=== PATIENT | female | born 1995 | race Caucasian/White ===

== ENCOUNTER → 2020-02-16 14:41 | Outpatient (CLI) | payer OTHER, MEDICAID, SELFPAY ==
[2020-02-16 15:39] LABS: HCG Quantitative /Beta subunit < 2.4 mIU/mL
== END ==
PROVIDERS: Family Provider Specialist; Referring Provider Specialist; Visit Provider Specialist
DX: Z34.90 Encounter for supervision of normal pregnancy, unspecified, unspecified trimester (principal)
CPT/HCPCS: 36415; 84702

== ENCOUNTER → 2021-11-07 14:34 | Outpatient (CLI) | payer OTHER, MEDICAID, SELFPAY ==
[2021-11-07 19:22] LABS: Appearance Urine UA CLEAR; Bilirubin Urine UA NEGATIVE (NEGATIVE); Color Urine UA YELLOW; Glucose Urine UA NEGATIVE (Negative); Ketones Urine UA NEGATIVE (NEGATIVE); Leukocyte Esterase Urine UA NEGATIVE (NEGATIVE); Nitrite Urine UA NEGATIVE (Negative); Occult Blood Urine UA 1+ (Negative); Protein Urine UA NEGATIVE (Negative); Urobilinogen Urine UA 0.2 E.U./dL (0.2)
[2021-11-07 19:25] LABS: pH Urine UA 5.5 (4.5-8.0)
[2021-11-07 20:35] LABS: Bacteria Urine None Seen; RBC Urine 1-5/HPF (0-5/HPF); WBC Urine None Seen (0-5/HPF)
== END ==
PROVIDERS: Family Provider Specialist; PCP Physician Assistant Medical; Visit Provider Obstetrics & Gynecology
DX: Z34.81 Encounter for supervision of other normal pregnancy, first trimester (principal)
CPT/HCPCS: 81003; 81015; 87086

== ENCOUNTER → 2021-12-05 14:42 | Outpatient (CLI) | payer OTHER, MEDICAID, SELFPAY ==
[2021-12-05 17:13] LABS: Add Manual Diff / Slide Review NO; Basophils Absolute Auto 0 /uL (0-100); Basophils Percent Auto 0.2 % (0-2); Eosinophils Absolute Auto 100 /uL (0-450); Eosinophils Percent Auto 1.4 % (2-4); Hematocrit 37.2 % (36-46); Hemoglobin 13.2 g/dL (12.0-16.0); Lymphocytes Absolute Auto 2700 /uL (1100-4500); Lymphocytes Percent Auto 26.8 % (25-40); Mean Corpuscular HGB Conc 35.4 % (30-36); Mean Corpuscular Hemoglobin 30.2 PG (26-34); Mean Corpuscular Volume 85.1 fL (80-100); Monocytes Absolute Auto 700 /uL (0-900); Monocytes Percent Auto 6.9 % (3-14); Neutrophils Absolute Auto 6500 /uL (1500-7000); Neutrophils Percent Auto 64.7 % (50-75); Platelet Count 306 X10^3/uL (150-400); Red Blood Cell Count 4.37 X10^6/uL (4.0-5.2); Red Cell Distribution Width 13.1 % (11.6-14.8); White Blood Cell Count 10.1 X10^3/uL (4.5-11.0)
[2021-12-06 15:43] LABS: Hepatitis B Surface Antigen NEGATIVE s/c (NEGATIVE)
[2021-12-06 15:59] LABS: HIV 1 & 2 Ab/Ag 4th Gen Combo NEGATIVE (NEGATIVE); Hep C Virus Ab w/Reflex Quant NEGATIVE s/c (NEGATIVE)
[2021-12-07 05:02] LABS: RPR Screen Non Reactive (Non Reactive)
[2021-12-08 10:29] LABS: Varicella IgG Antibody 277 index (Immune >165)
== END ==
PROVIDERS: Family Provider Specialist; PCP Physician Assistant Medical; Referring Provider Obstetrics & Gynecology; Visit Provider Obstetrics & Gynecology
DX: R31.9 Hematuria, unspecified; Z34.81 Encounter for supervision of other normal pregnancy, first trimester
CPT/HCPCS: 36415; 80055; 86787; 86803; 86850; 86900; 86901; 87086; 87389

== ENCOUNTER → 2022-01-07 08:28 | Outpatient (CLI) | payer OTHER, MEDICAID, SELFPAY ==
[2022-01-09 19:49] LABS: AFP Value 81.1 ng/mL (.); Gest Age on Col Date 17.4 weeks (.); Insulin Dep Diabetes No (.); OSBR Risk 1IN 409 (.); Results Report (.); Test Results *Screen Negative* (.)
== END ==
PROVIDERS: Family Provider Specialist; PCP Physician Assistant Medical; Referring Provider Obstetrics & Gynecology; Visit Provider Obstetrics & Gynecology
DX: Z34.82 Encounter for supervision of other normal pregnancy, second trimester (principal); Z3A.17 17 weeks gestation of pregnancy
CPT/HCPCS: 36415; 82105

== ENCOUNTER → 2022-01-30 16:00 | Outpatient (CLI) | payer OTHER, MEDICAID, SELFPAY ==
--- NOTE | 2022-01-30 16:00 | DI.US.S_ITS ---
PROCEDURE: US OB >= 14 WEEKS FETUS INDICATIONS: 20 WEEK ANATOMY SCAN OUTSIDE/PRIOR DATING DATA: Last menstrual period (LMP): 09/07/2021. LMP-based estimated date of delivery (QUYEN): 06/14/2022. First dating scan (date and location): 01/30/2022. Estimated date of delivery (QUYEN) from first dating scan: 06/12/2022. TECHNIQUE: Real-time scanning was performed of the fetus, with image documentation and biometric measurements. COMPARISON: None. FINDINGS: General: A single living intrauterine gestation is present. Presentation: Vertex Placenta: Placental position is posterior , without previa. Amniotic fluid index: 12.0 cm, normal range is 5-24 cm. Single deepest vertical pocket is 4.1 cm. heart rate: 140 beats per minute. Maternal cervical canal: 4.1 cm long. Normal lower limit is 2.5 cm. biometrics: Biparietal diameter: 4.8 cm 20 weeks 4 days Head circumference: 18.5 cm 20 weeks 6 days Abdominal circumference: 16.4 cm 21 weeks 3 days Femur length: 3.5 cm 21 weeks 1 day Clinically estimated gestational age: 20 weeks 5 days Composite gestational age from present scan: 21 weeks 0 days Estimated weight and percentile: 411 g, 75th percentile Anatomic survey: Neuro: Ventricles are non-dilated at less than 10 mm. Cisterna magna is normal at 3-11 mm. Cerebellum is normal in size and morphology. Nuchal skin fold: Normal at less than 6 mm between 14-21 weeks gestational age. Face: Nose and lips, facial profile are normal. Spine: No evidence for spina bifida. Heart: 4-chambered heart is present, with normal ventricular outflow tracts. Diaphragm: Diaphragm is intact. Stomach: Left-sided stomach is present. Kidneys: No hydronephrosis. Normal is less than 5 mm in 2nd trimester, less than 7 mm in 3rd trimester. Cord: 3-vessel cord insertion is not well visualized. Bladder: Normal in size. Extremities: All 4 extremities identified. IMPRESSION: Single live intrauterine with ultrasound gestational age by ultrasound is 21 weeks 0 days. Placental cord insertion is difficult to visualize. Recommend attention to this region on follow-up to exclude abnormality. We strive to produce accurate, complete, and clear reports of imaging services. To assist us in improving patient care, this report was composed using standard report templates and voice recognition software. Therefore, it may contain abnormal punctuation, insertions and/or omissions. Occasional wrong-word or sound-alike substitutions may occur. Though we review the report and make efforts to correct it, we do recommend that the report be read carefully in proper context to recognize any text inaccuracies. Dictated by: Ana María Altamirano M.D. on 01/31/2022 at 13:07 Approved by: Ana María Altamirano M.D. on 01/31/2022 at 13:12
== END ==
PROVIDERS: Family Provider Specialist; PCP Physician Assistant Medical; Referring Provider Obstetrics & Gynecology; Visit Provider Obstetrics & Gynecology
DX: Z34.82 Encounter for supervision of other normal pregnancy, second trimester (principal); Z3A.21 21 weeks gestation of pregnancy
CPT/HCPCS: 76811

== ENCOUNTER → 2022-02-06 15:05 | Outpatient (CLI) | payer OTHER, MEDICAID, SELFPAY ==
[2022-02-06 18:39] LABS: Urine N gonorrhoeae NOT DETECTED
[2022-02-06 18:41] LABS: Urine Chlamydia NOT DETECTED
== END ==
PROVIDERS: Family Provider Specialist; PCP Physician Assistant Medical; Visit Provider Obstetrics & Gynecology
DX: Z34.82 Encounter for supervision of other normal pregnancy, second trimester (principal); Z3A.21 21 weeks gestation of pregnancy
CPT/HCPCS: 87491; 87591

== ENCOUNTER → 2022-02-27 13:13 | Outpatient (CLI) | payer OTHER, MEDICAID, SELFPAY ==
--- NOTE | 2022-02-27 13:14 | DI.US.S_ITS ---
PROCEDURE: US OB FOLLOW UP INDICATIONS: RE-EVALUATE PLACENTAL CORD INSERT OUTSIDE/PRIOR DATING DATA: Last menstrual period (LMP): 09/07/2021. LMP-based estimated date of delivery (QUYEN): 06/14/2022. First dating scan (date and location): 01/30/2022. Estimated date of delivery (QUYEN) from first dating scan: 06/12/2022. The calculations are made using the working QUYEN of 06/14/2022. TECHNIQUE: Real-time scanning was performed of the fetus, with image documentation and biometric measurements. COMPARISON: [facility], , OB >= 14 WEEKS FETUS, 01/30/2022, 16:37. FINDINGS: General: A single living intrauterine gestation is present. Presentation: Vertex. Placenta: Placental position is posterior , without previa. Amniotic fluid index: 15.1 cm, normal range is 5-24 cm. Single deepest vertical pocket is 4.0 cm. heart rate: 137 beats per minute. Maternal cervical canal: 3 point cm long. Normal lower limit is 2.5 cm. The estimated gestational age is 25 weeks 0 day based on clinical dating. Other: Placental cord insertion appears normal. Nuchal fold measures 2.9 mm (normal range is less than 6 mm at 14-21 weeks). IMPRESSION: 1. A single living intrauterine gestation redemonstrated. 2. Normal placental cord insertion. We strive to produce accurate, complete, and clear reports of imaging services. To assist us in improving patient care, this report was composed using standard report templates and voice recognition software. Therefore, it may contain abnormal punctuation, insertions and/or omissions. Occasional wrong-word or sound-alike substitutions may occur. Though we review the report and make efforts to correct it, we do recommend that the report be read carefully in proper context to recognize any text inaccuracies. Dictated by: María Dela Cruz M.D. on 02/27/2022 at 14:22 Approved by: María Dela Cruz M.D. on 02/27/2022 at 14:35
== END ==
PROVIDERS: Family Provider Specialist; PCP Physician Assistant Medical; Referring Provider Obstetrics & Gynecology; Visit Provider Obstetrics & Gynecology
DX: Z36.2 Encounter for other antenatal screening follow-up (principal); Z3A.24 24 weeks gestation of pregnancy
CPT/HCPCS: 76816

== ENCOUNTER → 2022-03-06 16:39 | Outpatient (CLI) | payer OTHER, MEDICAID, SELFPAY ==
[2022-03-06 18:01] LABS: Hematocrit 35.5 % (36-46); Hemoglobin 12.1 g/dL (12.0-16.0)
[2022-03-06 18:21] LABS: GTT (PREG) 1 Hour PP 50gm Dose 87 mg/dL (76-139)
== END ==
PROVIDERS: Family Provider Specialist; PCP Physician Assistant Medical; Referring Provider Obstetrics & Gynecology; Visit Provider Obstetrics & Gynecology
DX: Z34.82 Encounter for supervision of other normal pregnancy, second trimester (principal); Z3A.26 26 weeks gestation of pregnancy
CPT/HCPCS: 36415; 82950; 85014; 85018

== ENCOUNTER → 2022-04-05 15:48 | Outpatient (CLI) | payer OTHER, MEDICAID, SELFPAY | PROVIDERS: Family Provider Specialist; PCP Physician Assistant Medical; Visit Provider Obstetrics & Gynecology | DX: Z34.83 Encounter for supervision of other normal pregnancy, third trimester (principal); R31.9 Hematuria, unspecified; Z3A.30 30 weeks gestation of pregnancy | CPT/HCPCS: 87086 ==

== ENCOUNTER 2022-04-19 15:49 | Outpatient (CLI) | payer OTHER, MEDICAID, SELFPAY ==
[2022-04-19] MEDS: NIFEdipine 10 MG CAPSULE PO ×4 (16:47→18:40)
--- NOTE | 2022-04-19 16:57 | DI.US.S_ITS ---
PROCEDURE: US OB LIMITED INDICATIONS: CONTRACTIONS. GROWTH AND CERVICAL LENGTH. OUTSIDE/PRIOR DATING DATA: Last menstrual period (LMP): 09/07/2021. LMP-based estimated date of delivery (QUYEN): 06/04/2022. First dating scan (date and location): 01/30/2022. Estimated date of delivery (QUYEN) from first dating scan: 06/12/2022. The calculations are made using the working QUYEN of 06/14/2022. TECHNIQUE: Real-time scanning was performed of the fetus, with image documentation. Endovaginal scanning: Not performed COMPARISON: None. FINDINGS: A single living intrauterine gestation is present. Presentation: Vertex. Placenta: Placental position is posterior, without previa. Amniotic fluid index: 12.4 cm, normal range is 5-24 cm. Single deepest vertical pocket is 5.1 cm. heart rate: 152 beats per minute. Maternal cervical canal: 3.7 cm long. Normal lower limit is 2.5 cm. Estimated weight 2167 grams, 87th percentile. BPD 8.5 centimeters. Head circumference 29.6 centimeters. Abdominal circumference 30 centimeters. Femur length 6.2 centimeters. IMPRESSION: Single living intrauterine gestation with estimated gestational age 33 weeks and 2 days based on biometric parameters. Dictated by: Oniel San M.D. on 04/19/2022 at 19:17 Approved by: Oniel San M.D. on 04/19/2022 at 19:19
[2022-04-19 18:43] LABS: Appearance Urine UA CLEAR; Bilirubin Urine UA NEGATIVE (NEGATIVE); Color Urine UA LT. YELLOW; Glucose Urine UA NEGATIVE (Negative); Ketones Urine UA 1+ (NEGATIVE); Leukocyte Esterase Urine UA NEGATIVE (NEGATIVE); Nitrite Urine UA NEGATIVE (Negative); Occult Blood Urine UA NEGATIVE (Negative); Protein Urine UA NEGATIVE (Negative); Specific Gravity Urine UA <=1.005 (1.000-1.035); Urobilinogen Urine UA 0.2 E.U./dL (0.2)
[2022-04-19 18:49] LABS: pH Urine UA 6.5 (4.5-8.0)
[2022-04-19 19:06] LABS: Bacteria Urine None Seen; RBC Urine 0-1/HPF (0-5/HPF); WBC Urine 0-1/HPF (0-5/HPF)
--- NOTE | 2022-04-19 20:31 | P.TNLD_ITS ---
Visit Information Visit Information Date of evaluation: 04/19/22 Primary OB Provider: Amilcar Kirk On-call OB Provider: Stalin Wilburn Reason for Evaluation: Yes rule out labor [facility] Medical History (Updated 04/05/22 @ 15:02 by Amilcar Kirk MD) Amenorrhea Bone spur of foot Exercise-induced asthma Vaginal delivery (~05/2017) Yeast infection involving the vagina and surrounding area Surgical History (Updated 10/17/21 @ 12:40 by Kim Farooq, RN) [place] teeth extracted Family History (Updated 10/17/21 @ 12:43 by Kim Farooq, RN) Father Hypertension Hypoglycemia Grandmother Diabetes mellitus Grandfather Diabetes mellitus DVT (deep venous thrombosis) Grandmother Blood clotting disorder Mother Family estrangement Social History marital status: unmarried,living together number of children: 1 household members: significant other and children lives independently: Yes housing: other (trailer home) pets and animals: Yes education level: college (some college) 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[employer]) current occupational exposures/hazards: No special linda needs: No seatbelt use: always water heater temp set < 120 deg: Yes working smoke detector in home: Yes fire extinguisher in home: Yes carbon monox detector in home: Yes firearms in home: Yes firearms unloaded and locked: Yes do you feel safe at home: Yes Smoking Status: Never smoker second hand exposure: Yes (s/o smokes, outdoors and not in car) alcohol intake: former (only occasional and not while ) substance use type: does not use during the past year weight has: other (fluctuates; had previously lost wt on phentermine but stopped using) well-balanced diet: daily or most days daily servings fruits/ve-4 caffeine: Yes (Aware of 200mg limit) Type(s) of exercise: none and 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 yellow Urine Appearance Clear Urine pH 6.5 Ur Specific [place] <=1.005 Urine Protein Negative Urine Glucose (UA) Negative Urine Ketones 1+ H Urine Occult Blood Negative Urine Nitrate Negative Urine Bilirubin Negative Urine Urobilinogen 0.2 Ur Leukocyte Esterase Negative Urine RBC 0-1/hpf Urine WBC 0-1/hpf Urine Bacteria None seen Evaluation Evaluation Baseline heart rate: 132 Variability: Average (6-10) monitor accelerations: Present Monitor Decelerations: Absent Comments: Ctx stopped after 4 doses of Procardia. pt observed 2 hrs after ctx ceased U/A negative Diagnosis, Plan/Disposition Plan/Disposition Plan: to see Dr. Kirk next Friday, but return if recurrent regular contractions OB Disposition: home
== END 2022-04-19 20:30 | disposition home or self-care (01) ==
LOC: LABOR 20:31 → OB 04-22 10:37
PROVIDERS: Family Provider Specialist; PCP Physician Assistant Medical; Referring Provider Obstetrics & Gynecology; Visit Provider Obstetrics & Gynecology
DX: O60.03 Preterm labor without delivery, third trimester (principal); Z3A.32 32 weeks gestation of pregnancy
CPT/HCPCS: 59025; 76815; 81001; 87086; G0378; G0379

== ENCOUNTER → 2022-05-21 09:18 | Outpatient (CLI) | payer OTHER, MEDICAID, SELFPAY ==
[2022-05-22 09:46] LABS: Strep Grp B PCR NEG for Grp B Strep
== END ==
PROVIDERS: Family Provider Specialist; PCP Physician Assistant Medical; Visit Provider Obstetrics & Gynecology
DX: Z34.83 Encounter for supervision of other normal pregnancy, third trimester (principal); Z3A.36 36 weeks gestation of pregnancy
CPT/HCPCS: 87653

== ENCOUNTER 2022-05-22 19:27 | Outpatient (CLI) | payer OTHER, MEDICAID, SELFPAY | END 2022-05-22 20:49 | disposition home or self-care (01) | LOC: LABOR 20:45 → OB 05-23 13:50 | PROVIDERS: Family Provider Specialist; PCP Physician Assistant Medical; Referring Provider Obstetrics & Gynecology; Visit Provider Obstetrics & Gynecology | DX: Z03.71 Encounter for suspected problem with amniotic cavity and membrane ruled out (principal); Z3A.36 36 weeks gestation of pregnancy | CPT/HCPCS: 59025; 84112; G0378; G0379 ==

== ENCOUNTER 2022-06-07 07:05 | Observation (INO) | payer OTHER, MEDICAID, SELFPAY ==
[2022-06-07 09:38] LABS: Add Manual Diff / Slide Review NO; Basophils Absolute Auto 0 /uL (0-100); Basophils Percent Auto 0.2 % (0-2); Eosinophils Absolute Auto 100 /uL (0-450); Eosinophils Percent Auto 0.7 % (2-4); Hemoglobin 12.1 g/dL (12.0-16.0); Lymphocytes Absolute Auto 2000 /uL (1100-4500); Lymphocytes Percent Auto 16.1 % (25-40); Mean Corpuscular HGB Conc 33.7 % (30-36); Mean Corpuscular Hemoglobin 28.8 PG (26-34); Mean Corpuscular Volume 85.5 fL (80-100); Monocytes Absolute Auto 1000 /uL (0-900); Monocytes Percent Auto 7.8 % (3-14); Neutrophils Absolute Auto 9300 /uL (1500-7000); Neutrophils Percent Auto 75.2 % (50-75); Platelet Count 329 X10^3/uL (150-400); Red Blood Cell Count 4.21 X10^6/uL (4.0-5.2); Red Cell Distribution Width 14.2 % (11.6-14.8); White Blood Cell Count 12.4 X10^3/uL (4.5-11.0)
== END 2022-06-07 10:50 | disposition home or self-care (01) ==
PROVIDERS: Admitting Provider Obstetrics & Gynecology; Family Provider Specialist; PCP Physician Assistant Medical; Referring Provider Obstetrics & Gynecology; Visit Provider Obstetrics & Gynecology
DX: O47.1 False labor at or after 37 completed weeks of gestation (principal); Z3A.39 39 weeks gestation of pregnancy
CPT/HCPCS: 59025; 85025; 86850; 86900; 86901; G0378; G0379

== ENCOUNTER 2022-06-09 22:43 | Inpatient (IN) | payer OTHER, MEDICAID, SELFPAY ==
[2022-06-09 23:37] LABS: Hematocrit 34.1 % (36-46); Hemoglobin 11.5 g/dL (12.0-16.0); Mean Corpuscular HGB Conc 33.8 % (30-36); Mean Corpuscular Hemoglobin 28.7 PG (26-34); Mean Corpuscular Volume 85.1 fL (80-100); Platelet Count 301 X10^3/uL (150-400); Red Cell Distribution Width 14.1 % (11.6-14.8)
[2022-06-09 23:38] LABS: Add Manual Diff / Slide Review YES
[2022-06-09 23:40] VITALS: BP 130/76
[2022-06-09] MEDS: LACTATED RINGERS 1,000 ML 100 ML IV (23:45)
--- NOTE | 2022-06-10 00:13 | PM.OBHP.IH.1 ---
OB HPI Date/Time Date of admission: 06/10/22 Date Patient Seen: 06/10/22 Time Patient Seen: 00:13 History of Present Condition Chief complaint: Labor QUYEN Calculator Estimated Delivery Date Method Current WG Current Estimate 06/14/22 LMP (Certain) 39w 3d Other Estimates 06/11/22 Ultrasound #1 39w 6d : 2 Para: 1 Narrative: History of a precipitous labor care: good care Preadmission Labs Last OB Lab Results: Blood Type O Positive 06/09/22 23:21 Antibody Screen Negative 06/09/22 23:21 Hematocrit 34.1 % (36-46) L 06/09/22 23:21 Hemoglobin 11.5 g/dL (12.0-16.0) L 06/09/22 23:21 Hepatitis B Surface Antigen Negative s/c (NEGATIVE) 12/05/21 15:21 Hepatitis C Antibody Negative s/c (NEGATIVE) 12/05/21 15:21 Rubella Antibody 90.0 IU/mL (>15) 12/05/21 15:21 Varicella-Zoster IgG Antibody 277 index (Immune >165) 12/05/21 15:21 Glucose 1 Hour 87 mg/dL (76-139) 03/06/22 16:46 Group B Streptococcus (PCR) Neg for grp b strep 05/21/22 09:18 Prior (ies) Past Pregnancies Del. Date GA/Weeks Labor Lgth Wt Sex Route Outcome Anesthesia Place Delv Breastfeed Preg Comp Name 05/02/17 40 4 7 lb 10 oz Female vaginal live - full term IH 2-3 months labor other [place] Delivery Date: 05/02/17 Last Updated by: Kim Farooq RN precipitous delivery (~4 hours labor including early labor) Evaluation Evaluation Baseline heart rate: 156 Variability: Moderate (11-25) monitor accelerations: Present Monitor Decelerations: Absent Contraction Frequency (minutes): 2 Uterine Contraction Intensity: Strong/Firm Category of Tracing: Reactive Status: Category l Dilation (cm): 6 Effacement (%): 90 Dilation: >/=5 cm Effacement: >/=80% station: 0 Position of cervix: anterior Consistency: soft Gtz score: 12 PFSH Medical History (Updated 06/05/22 @ 08:51 by Stalin Wilburn MD) Amenorrhea Bone spur of foot Exercise-induced asthma Vaginal delivery (~05/2017) Yeast infection involving the vagina and surrounding area Surgical History (Updated 10/17/21 @ 12:40 by Kim Farooq, RN) [place] teeth extracted Family History (Updated 10/17/21 @ 12:43 by Kim Farooq, RN) Father Hypertension Hypoglycemia Grandmother Diabetes mellitus Grandfather Diabetes mellitus DVT (deep venous thrombosis) Grandmother Blood clotting disorder Mother Family estrangement Social History marital status: unmarried,living together number of children: 1 household members: significant other and children lives independently: Yes housing: other (trailer home) pets and animals: Yes education level: college (some college) 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 occupational exposures/hazards: No special linda needs: No seatbelt use: always water heater temp set < 120 deg: Yes working smoke detector in home: Yes fire extinguisher in home: Yes carbon monox detector in home: Yes firearms in home: Yes firearms unloaded and locked: Yes do you feel safe at home: Yes Smoking Status: Never smoker second hand exposure: Yes (s/o smokes, outdoors and not in car) alcohol intake: former (only occasional and not while ) substance use type: does not use during the past year weight has: other (fluctuates; had previously lost wt on phentermine but stopped using) well-balanced diet: daily or most days daily servings fruits/ve-4 caffeine: Yes (Aware of 200mg limit) Type(s) of exercise: none and 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) Meds Home Medications and Allergies Home Medications Medication Instructions Recorded Confirmed Type albuterol sulfate 90 mcg/actuation 2 puff INH BIDP PRN #1 ea 09/27/16 06/05/22 Rx aerosol inhaler (Ventolin HFA) cholecalciferol (vitamin D3) 25 25 mcg PO DAILY 10/17/21 06/05/22 History mcg (1,000 unit) capsule omega-3 fatty acids-fish oil 340 1 cap PO DAILY 10/17/21 06/05/22 History mg-1,000 mg capsule (Fish Oil) prenat.vits,stephanie,[id number] 1 tab PO DAILY 10/17/21 06/05/22 History Allergies Allergy/AdvReac Type Severity Reaction Status Date / Time Latex, Natural Rubber Allergy Mild itchiness,r Verified 06/05/22 07:56 [LATEX, NATURAL RUBBER] fracisco OB Exam Narrative Exam Narrative: 26-year-old 2 para 1 care since 5 weeks' gestation. She would had a history of rapid delivery she declined 17 hydroxy therapy care had been relatively unremarkable she had been scheduled for an induction last Friday at 39 weeks due to her history of precipitous delivery and distance from the hospital but this was canceled due to logistics. About 8:00 a.m. this evening patient started having regular contractions that were increasing in intensity and patient came to the hospital and on admission was found to be 6 cm. She requested an epidural which was achieved HENWY Head: normal to inspection and normocephalic Eyes General: appearance normal, both eyes and all related structures Resp Effort & Inspection: normal respiratory effort GI Inspection: normal to inspection External Female Exam: Yes normal external appearance Speculum Exam - Vagina: Yes normal appearance of the vagina Presentation: vertex Estimated Weight (lbs): 8 Amniotic Fluid: clear Other: SROM after epidural placed Objective Labs 06/09/22 23:21 Labs: Laboratory Results - last 24 hr 06/09/22 23:21 WBC 14.0 H RBC 4.00 Hgb 11.5 L Hct 34.1 L MCV 85.1 MCH 28.7 MCHC 33.8 RDW 14.1 Plt Count 301 Neut % (Auto) Not Reportable Lymph % (Auto) Not Reportable [place] % (Auto) Not Reportable Eos % (Auto) Not Reportable Baso % (Auto) Not Reportable Lymph # (Auto) Not Reportable [place] # (Auto) Not Reportable Baso # (Auto) Not Reportable Assessment and Plan Assessment and Plan Assessment and Plan narrative: Term 39+ 5. Anticipate vaginal delivery Pelvic Exam Dilation (cm): 6 Effacement (%): 90 station: 0 Contractions Contraction intensity: Strong/Firm Status status: Category l
[2022-06-10] MEDS: FENT 2MCG/ML BUPIV 0.125% EPI 200 MCG/100 ML PLAST..BAG 6 MCG EPIDURAL (00:15)
[2022-06-10 01:45] LABS: Neutrophils Absolute Manual 10080 /uL (3000-5900); RBC Morphology Normal Morphology; Total Cells Counted 100
[2022-06-10] MEDS: OXYTOCIN PREMIX 30 UNIT/500 ML PLAST..BAG 200 UNIT IV (03:09)
--- NOTE | 2022-06-10 03:31 | P.PCNOB_ITS ---
Labor & Delivery Delivery date: 06/10/22 Cervical ripening method: none Induction method: none Delivery augmentation: rupture of membranes Delivery monitor: external FHT and external uterine Route of delivery: Episiotomy description: None L&D Laceration Description: None Estimated blood loss (mL): 550 Quantitative Blood Loss: 550 Anesthesia Type: Epidural [place] Baby 1: gender: Male Presentation: vertex Position: Left Occiput Anterior Placenta delivery description: Spontaneous Cord Vessel Description: 3 Vessels and Nuchal Cord score (1 min): 9 score (5 min): 9 Plan for aftercare: Routine care
[2022-06-10] MEDS: IBUPROFEN 600 MG TABLET PO ×2 (05:44→16:42)
[2022-06-11] MEDS: IBUPROFEN 600 MG TABLET PO (04:10)
[2022-06-11 05:53] LABS: Add Manual Diff / Slide Review NO; Basophils Absolute Auto 0 /uL (0-100); Basophils Percent Auto 0.3 % (0-2); Eosinophils Absolute Auto 100 /uL (0-450); Eosinophils Percent Auto 1.1 % (2-4); Hematocrit 31.9 % (36-46); Hemoglobin 10.7 g/dL (12.0-16.0); Lymphocytes Absolute Auto 2800 /uL (1100-4500); Lymphocytes Percent Auto 20.1 % (25-40); Mean Corpuscular HGB Conc 33.6 % (30-36); Mean Corpuscular Hemoglobin 28.8 PG (26-34); Mean Corpuscular Volume 85.8 fL (80-100); Monocytes Absolute Auto 900 /uL (0-900); Monocytes Percent Auto 6.8 % (3-14); Neutrophils Absolute Auto 9900 /uL (1500-7000); Neutrophils Percent Auto 71.7 % (50-75); Platelet Count 286 X10^3/uL (150-400); Red Blood Cell Count 3.72 X10^6/uL (4.0-5.2); Red Cell Distribution Width 14.3 % (11.6-14.8); White Blood Cell Count 13.8 X10^3/uL (4.5-11.0)
--- NOTE | 2022-06-11 08:51 | PM.OBDS.1 ---
Discharge Providers Provider Date of admission: 06/09/22 22:43 Discharge Date: 06/11/22 Primary care physician: Bianca Pretty PA-C Consults: 06/11/22 03:27 Consult to Karate Instructor Routine Comment: Discharge provider: Genesis Hercules MD Summary Hospital Course Date Patient Seen: 06/11/22 Time Patient Seen: 08:51 Diagnoses: Spontaneous vaginal delivery Hospital Course: Patient arrived in Labor and delivery in active labor. She had a spontaneous vaginal delivery of a male . Peripartum Data Delivery Method: Natural Vaginal Laceration Description: None complications: none 1: Gender: Male Disposition of : home Discharge Diagnosis (1) Vaginal delivery: Status: Acute Status at Discharge Cognitive/behavioral status at discharge: oriented Functional status at discharge: independent ambulation Overall status at discharge: patient is progressing back to baseline Time Spent with Patient Time attestation: Total time spent providing and/or coordinating discharge services: Time spent: Less than 30 minutes Objective Labs 06/11/22 05:35 Labs: Laboratory Results - last 24 hr 06/11/22 05:35 WBC 13.8 H RBC 3.72 L Hgb 10.7 L Hct 31.9 L MCV 85.8 MCH 28.8 MCHC 33.6 RDW 14.3 Plt Count 286 Neut % (Auto) 71.7 Lymph % (Auto) 20.1 L [place] % (Auto) 6.8 Eos % (Auto) 1.1 L Baso % (Auto) 0.3 Neut # (Auto) 9900 H Lymph # (Auto) 2800 [place] # (Auto) 900 Eos # (Auto) 100 Baso # (Auto) 0 Exam Vital Signs (past 8 hours): Blood pressure 99/86, pulse 90, temperature 36.6? Narrative Exam Narrative: Abdomen is soft, nontender. Uterus is firm, at U, nontender. Mild lochia. Extremities without edema and nontender. Discharge Plan Discharge Plan Patient Disposition: Home Discharge orders & Medications Prescriptions: Continued cholecalciferol (vitamin D3) 25 mcg (1,000 unit) capsule 25 mcg PO DAILY Fish Oil 340-1,000 mg capsule 1 cap PO DAILY prenat.vits,stephanie,ref-ekhz-nijbe Tablet 1 tab PO DAILY albuterol sulfate [Ventolin HFA] 90 MCG/PUFF HFA aerosol inhaler 2 puff INH BIDP PRN (Reason: Shortness Of Breath Or Wheezing) Follow up/Referrals: Bianca Pretty PA-C [Primary Care Provider] - Genesis Hercules MD [Family Provider] - 6 Weeks Diet/Activity/Treatments Diet: Regular Activity: Nothing in vagina for 6 weeks Skin/Wound/Dressing Care Report to your healthcare provider any signs of infection, such as:: chills, fever and increased pain Visit Report/Discharge Packet Stand Alone Forms: Patient Portal/API Discharge Data Primary Care Provider: Bianca Pretty
== END 2022-06-11 10:53 | disposition home or self-care (01) | DRG 560 ==
PROVIDERS: Obstetrics & Gynecology; Admitting Provider Obstetrics & Gynecology; Family Provider Specialist; PCP Physician Assistant Medical; Referring Provider Obstetrics & Gynecology; Visit Provider Obstetrics & Gynecology
DX: O80 Encounter for full-term uncomplicated delivery (principal); Z3A.39 39 weeks gestation of pregnancy; Z37.0 Single live birth
CPT/HCPCS: 36415; 59050; 59409; 85007; 85025; 86850; 86900; 86901; G0379; J2590

== ENCOUNTER → 2023-09-15 16:32 | Outpatient (CLI) | payer OTHER, MEDICAID, SELFPAY ==
--- NOTE | 2023-09-15 16:33 | DI.US.S_ITS ---
PROCEDURE: US PELVIC COMPLETE INDICATIONS: bilateral ovulation pain x 4 months TECHNIQUE: Real-time scanning was performed of the pelvic organs, with image documentation. Additional endovaginal scanning was necessary due to incomplete visualization of the adnexal and endometrial structures by transabdominal scanning. COMPARISON: None. FINDINGS: Uterus: Uterus is anteverted and normal in size at 7.3 x 5.6 x 3.5 cm. The myometrium is homogeneous. The endometrium measures 5 mm combined thickness. Ovaries: The right ovary measures 2.8 x 1.8 x 1.6 cm, with a calculated ovarian volume of 4.2 cc. The left ovary measures 2.7 x 2.3 x 2.0 cm, with a calculated ovarian volume of 6.5 cc. The ovaries have a normal sonographic appearance. Less than 12 follicles can be seen in each ovary. No adnexal masses are seen. Other: No pathologic free abdominal or pelvic fluid. IMPRESSION: Normal appearance of the uterus and ovaries. No cause for patient's symptoms is identified. We strive to produce accurate, complete, and clear reports of imaging services. To assist us in improving patient care, this report was composed using standard report templates and voice recognition software. Therefore, it may contain abnormal punctuation, insertions and/or omissions. Occasional wrong-word or sound-alike substitutions may occur. Though we review the report and make efforts to correct it, we do recommend that the report be read carefully in proper context to recognize any text inaccuracies. Dictated by: Blake Kinney M.D. on 09/16/2023 at 8:34 Approved by: Blake Kinney M.D. on 09/16/2023 at 8:37
== END ==
PROVIDERS: Family Provider Specialist; PCP Physician Assistant Medical; Referring Provider Obstetrics & Gynecology; Visit Provider Obstetrics & Gynecology
DX: N92.6 Irregular menstruation, unspecified (principal)
CPT/HCPCS: 76830; 76856

== ENCOUNTER → 2023-12-02 07:16 | Outpatient (CLI) | payer OTHER, MEDICAID, SELFPAY ==
[2023-12-02 08:03] LABS: Add Manual Diff / Slide Review NO; Basophils Absolute Auto 0 /uL (0-100); Basophils Percent Auto 0.3 % (0-2); Eosinophils Absolute Auto 200 /uL (0-450); Eosinophils Percent Auto 1.8 % (2-4); Hematocrit 36.6 % (36-46); Hemoglobin 12.9 g/dL (12.0-16.0); Lymphocytes Absolute Auto 2300 /uL (1100-4500); Lymphocytes Percent Auto 25.5 % (25-40); Mean Corpuscular HGB Conc 35.1 % (30-36); Mean Corpuscular Hemoglobin 29.9 PG (26-34); Mean Corpuscular Volume 85.3 fL (80-100); Monocytes Absolute Auto 700 /uL (0-900); Monocytes Percent Auto 7.7 % (3-14); Neutrophils Absolute Auto 5800 /uL (1500-7000); Neutrophils Percent Auto 64.7 % (50-75); Platelet Count 354 X10^3/uL (150-400); Red Cell Distribution Width 12.6 % (11.6-14.8); White Blood Cell Count 8.9 X10^3/uL (4.5-11.0)
[2023-12-02 08:47] LABS: Alanine Aminotransferase 14 IU/L (<35); Albumin Globulin Ratio 1.4 (1.0-2.8); Alkaline Phosphatase 71 U/L (38-126); Aspartate Aminotransferase 18 IU/L (14-36); BUN Creatinine Ratio 18.9 (6-22); Bilirubin Total 0.7 mg/dL (0.2-1.3); Blood Urea Nitrogen 14 mg/dL (7-17); Calcium 9.2 mg/dL (8.4-10.2); Carbon Dioxide 24 mmol/L (22-32); Chloride 104 mmol/L (98-107); Cholesterol 207 mg/dL (140-199); Estimated Glomerular Filt Rate > 60 mL/min (>60); Globulin 2.9 g/dL (1.7-4.1); Glucose 88 mg/dL (70-100); HDL Cholesterol 48 mg/dL (40-60); HEMOLYSIS < 15 (0-50); LDL Cholesterol Calculated 151 mg/dL (<100); Sodium 136 mmol/L (137-145); Total Protein 6.9 g/dL (6.3-8.2); Triglycerides 39 mg/dL (35-150)
[2023-12-02 13:53] LABS: Hemoglobin A1C% w Est Avg Glu 4.7 % (4.0-6.0)
== END ==
PROVIDERS: Family Provider Specialist; PCP Family Medicine; Referring Provider Family Medicine; Visit Provider Family Medicine
DX: R63.5 Abnormal weight gain (principal); N94.0 Mittelschmerz
CPT/HCPCS: 36415; 80053; 80061; 83036; 84443; 85025

== ENCOUNTER → 2024-04-28 16:15 | Outpatient (CLI) | payer OTHER, SELFPAY ==
--- NOTE | 2024-04-29 14:15 | DIET.OUTPTC ---
Dietary Outpatient Consultation Note Consultation Date: 04/29/2024 Assessment: 28 y F referred to dietitian for R63.5 - Abnormal weight gain. Tiffany presents to learn more about healthy eating pattern. Concerns regarding family hx of multiple co-morbidities, wants to prevent that. Has struggled with increased weight gain . Is on phentermine. Pt's weight at 03/01/24 visit 204 lb 8 oz. Patient denies being this weight. Reports end of Feb started tracking weight and was 196 lb. Is now 194 lb per scale at home. Reports weight loss has stalled. Pt was told by another wellness physician to eat 1 g protein per lb body weight. Pt eating excessive protein intake. Struggles to get protein content in, was aiming for 190 g. Does low carb r/t concern of weight gain with carb intake. Reports growing up only had 1 meal per day at night. Has been working to adjust to eating more during daytime. With med is not hungry. Diet recall: B-scrambled eggs, coffee 2-3 k-cups, sausage sometimes veggie + 30 g premier shake L-Chicken meatballs (17 g protein) or beef, 1/4-1/3 c quinoa, 1 large carrot, blueberries, cheese sticks S-beef stick 4g protein x2 S- 30 g protein premier shake D-6-8 oz steak, sweet potatoes, has chicken ~1x/wk, fish every other week *has cows so beef is most common meat at dinner, does go fishing in [place] yearly plans to catch more salmon this year to have enough to have 2x/wk *excessive protein intake est. 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 Ht: 5 ft 7 in Wt: 194 lb BMI: UBW: 210 lb Oct 2023 Nutrition Diagnosis: Excessive protein intake r/t misinformation aeb diet recall with 150g protein per day Altered nutrition related lab values r/t high intake of beef/processed meats aeb diet recall, chol 207, LDL 151 Interventions: Discussed and provided handouts on the following -Appropriate protein intake and health risks of continued excessive protein intake -Protein content of commonly eaten foods -Carbs and weight and appropriate portions -Lipid panel related to nutritional content in diet and lifestyle changes to reduce (fiber, SFA, activity) -Label reading -Fiber, amount, types -MeD eating style Goals: -70-80 g protein/day (.8-1g/kg of adjusted IBW), pt to cut out premier protein shakes and reduce portion size of beef to 4 oz serving -Increase veg/fruit intake by 1-2 servings either with snack or dinner to increase fiber intake for better BMs Monitoring/Evaluations: f/u in 1 month Electronically Signed by: Dora Anna 04/29/24 14:15 Clinical Dietitian [address] [id number]
== END ==
PROVIDERS: Family Provider Specialist; PCP Family Medicine; Referring Provider Family Medicine
DX: R63.5 Abnormal weight gain (principal); E78.5 Hyperlipidemia, unspecified; K59.00 Constipation, unspecified; Z68.32 Body mass index [BMI] 32.0-32.9, adult; Z71.3 Dietary counseling and surveillance
CPT/HCPCS: 97802

== ENCOUNTER → 2024-09-21 14:52 | Outpatient (CLI) | payer OTHER, SELFPAY ==
--- NOTE | 2024-09-22 12:32 | DIET.OUTPTC ---
Dietary Outpatient Consult Consult Date: 09/21/24 Assessment:?28 y F referred to dietitian for R63.5 - Abnormal weight gain, Body mass index [BMI] 32.0-32.9, adult, hyperlipidemia Pt reports 10 lb weight loss in past 3 months. Has been reading nutrition fact labels and meal prepping on Friday. Also monitoring protein and fiber intake. Includes fiber source in snacks and meals. Feels confident in changes and continuing. Ht: 5 ft 7 in Wt: 184 lb Weight hx: 184 lb today (-12% weight loss total, -5% weight loss in 3 months) 194 lb in May 2024 210 lb Oct 2023 Activity: volleyball, badminton Nutrition Diagnosis:? no further dx a this time Interventions:? Discussed and provided appropriate resources on the following: -Continuation with current patterns, resources that have been helpful ([employer]), reviewed commonly eaten foods -Muscle building activities Goals: -1-2x/wk resistance training with bands or weights downstairs Monitoring/Evaluations:? F/u in 6 months, review lipid panel Electronically Signed by: Dora Anna Clinical Dietitian [address] [id number]
== END ==
PROVIDERS: Family Provider Specialist; PCP Family Medicine; Referring Provider Family Medicine
DX: R63.5 Abnormal weight gain (principal); E78.5 Hyperlipidemia, unspecified; Z71.3 Dietary counseling and surveillance; Z68.32 Body mass index [BMI] 32.0-32.9, adult
CPT/HCPCS: 97803

== ENCOUNTER → 2025-03-14 16:08 | Outpatient (CLI) | payer OTHER, SELFPAY ==
--- NOTE | 2025-03-21 12:52 | DIET.OUTPTC ---
Dietary Outpatient Consult Consult Date:03/14/25 Assessment:?28 y F referred to dietitian for R63.5 - Abnormal weight gain, Body mass index [BMI] 32.0-32.9, adult, hyperlipidemia Reports difficulty in losing further weight. Wondering about supplements, including animal organ supplements to help boost metabolism. Diet Recall: B-chobani regular fruit zambian yogurt (11g pro) + fruit banana/apple 1-2 string cheese, meat stick Built puff bar (17 g protein) L- salad bought -corn abraham kit D- creamy soup 1x/wk, friday steak/salmon w fried potatoes, green beans, chicken in air fryer with alberto, pasta, chk, sauce, vegs 80-85 g protein estimated Fluids:water, coffee Ht: 5 ft 7 in Wt: 187 lb most recent per pt Weight hx: 187 lb 2024 (11% weight loss total) 184 lb August 2024 (-12% weight loss total, -5% weight loss in 3 months) 194 lb in May 2024 210 lb Oct 2023 Activity:not discussed at this visit Pertinent Labs:cholesterol 207, LDL 151 Nutrition Diagnosis:? Excessive energy intake r/t hidden calories aeb diet recall with creamy sauces/dressing/butter/alberto/high sugar yogurt as hidden calories Interventions:? Discussed and provided appropriate resources on the following: -Discussed there is not any literature evidence regarding animal organ supplements regarding weight loss/metabolism nor is regulated supplements, thus advised against -Discussed potential reasons behind weight loss plateau -Reviewed diet recall and discussed sources of hidden calories and creamy sauces/dishes making it difficult to stay in calorie deficit needed for weight loss -Reviewed lab results and correlation with nutrition (LDL and sat. fat and soluble fiber) Goals: -Reduce alberto when using it in recipes to half amount -Only 2 cheese servings per day -Zero sugar zambian yogurt with 20 g protein -Oil only when cooking/oil vinegar dressing for salad or reduced dressing -Lower calorie sauces (apple cider vinegar one, herbs as seasoning over sauce) -1-2 day food log in [facility] for assessment Monitoring/Evaluations:? F/u 6 months (offered sooner (4-6wks), pt preference for 6 months) Electronically Signed by: Dora Anna Clinical Dietitian [address] [id number]
== END ==
LOC: DIET 16:09
PROVIDERS: PCP Family Medicine; Referring Provider Family Medicine
DX: R63.5 Abnormal weight gain (principal); Z68.32 Body mass index [BMI] 32.0-32.9, adult; E78.5 Hyperlipidemia, unspecified; Z71.3 Dietary counseling and surveillance
CPT/HCPCS: 97803

== ENCOUNTER → 2025-03-22 06:49 | Outpatient (CLI) | payer OTHER, SELFPAY ==
[2025-03-22 08:00] LABS: Add Manual Diff / Slide Review NO; Hematocrit 39.4 % (36-46); Hemoglobin 13.7 g/dL (12.0-16.0); Lymphocytes Absolute Auto 2200 /uL (1100-4500); Mean Corpuscular HGB Conc 34.7 % (30-36); Mean Corpuscular Hemoglobin 29.6 PG (26-34); Mean Corpuscular Volume 85.3 fL (80-100); Platelet Count 345 X10^3/uL (150-400)
[2025-03-22 08:39] LABS: Alanine Aminotransferase 16 IU/L (<35); Albumin 4.3 g/dL (3.5-5.0); Albumin Globulin Ratio 1.4 (1.0-2.8); Alkaline Phosphatase 60 U/L (38-126); Blood Urea Nitrogen 13 mg/dL (7-17); Calcium 9.4 mg/dL (8.4-10.2); Carbon Dioxide 28 mmol/L (22-32); Chloride 102 mmol/L (98-107); Estimated Glomerular Filt Rate > 60 mL/min (>60); Globulin 3.0 g/dL (1.7-4.1); Glucose 90 mg/dL (70-99); HEMOLYSIS < 15 (0-50); Potassium 4.2 mmol/L (3.4-5.1); Sodium 138 mmol/L (137-145); Total Protein 7.3 g/dL (6.3-8.2)
[2025-03-22 09:05] LABS: TSH w/ Reflex to FT4 1.18 uIU/mL (0.47-4.68)
== END ==
PROVIDERS: PCP Family Medicine; Referring Provider Family Medicine; Visit Provider Family Medicine
DX: N64.52 Nipple discharge (principal)
CPT/HCPCS: 36415; 80053; 84146; 84443; 85025